=== PATIENT | male | born 1945 | race Caucasian/White ===

== ENCOUNTER → 2017-01-23 | Outpatient (CLI) | payer BC ==
--- NOTE | 2017-01-23 12:28 | KCIC ---
KNEE BILAT 3V Indication: Chronic bilateral knee pain for one year. . Comparison: No comparison is available. FINDINGS: Left knee: Moderate to severe narrowing of the medial joint with marginal spurring. Marginal osteophytes at the lateral joint and patellofemoral joint. No acute fracture or aggressive bone destruction. Posterior soft tissue calcifications are likely vascular. Right knee Moderate to severe narrowing of the medial compartment with osteophytes. Small osteophytes at the lateral and patellofemoral compartment. Posterior calcifications are likely vascular. No aggressive bone destruction or acute fracture. IMPRESSION: Primary osteoarthritis, greatest at the medial compartment of each knee. Electronically signed by: Rubén English MD (01/23/2017 12:25 PM) [id number]
== END | disposition home or self-care (01) ==
LOC: KCIC 11:23
PROVIDERS: ATTEND Family Medicine
DX: M17.0 Bilateral primary osteoarthritis of knee (principal)
CPT/HCPCS: 73562